=== PATIENT | male | born 1960 | race Caucasian/White ===

== ENCOUNTER → 2017-06-14 15:36 | Outpatient (POV) | payer OTHER, SELFPAY | PROVIDERS: Visit Provider Physician Assistant | DX: Z00.00 Encounter for general adult medical examination without abnormal findings (principal) ==

== ENCOUNTER → 2018-04-26 08:39 | Outpatient (CLI) | payer OTHER, SELFPAY ==
--- NOTE | 2018-04-26 08:47 | US_ITS ---
US liver HISTORY: Right upper quadrant pain with nausea and elevated liver enzymes ITS.REASON: ELEVATED LIVER FUNCTION TEST ORDERING PHYSICIAN: Roni Vargas MD PATIENT AGE: 58 years COMPARISON: None FINDINGS: PANCREAS:Unremarkable. No obvious mass or abnormal fluid collection. No ductal dilatation LIVER:No focal liver lesions demonstrated. Homogeneous echogenicity. No intrahepatic biliary ductal dilatation evident RIGHT KIDNEY:Unremarkable. Normal size and echogenicity. No hydronephrosis GALLBLADDER:Prior cholecystectomy. Common bile duct is normal at 2 mm. IMPRESSION: Prior cholecystectomy otherwise negative hepatic ultrasound
== END ==
PROVIDERS: PCP Family Medicine; Visit Provider Family Medicine
DX: R94.5 Abnormal results of liver function studies (principal)
CPT/HCPCS: 76705

== ENCOUNTER → 2018-05-09 09:38 | Outpatient (POV) | payer OTHER, SELFPAY ==
[2018-05-09 10:22] LABS: Basophils # 0.1 K/mm3 (0-0.2); Basophils % 0.9 % (0.1-2.0); Eosinophils # 0.1 K/mm3 (0.0-0.4); Eosinophils % 2.1 % (0.1-12.0); Hematocrit 45.7 % (42.0-52.0); Hemoglobin 14.8 g/dL (14.1-18.0); Lymphocytes # 1.8 K/mm3 (0.7-4.5); Lymphocytes % 29.6 % (10-50); Mean Corpuscular HGB Conc 32.5 g/dL (31.8-35.4); Mean Corpuscular Hemoglobin 28.3 pg (27.0-31.2); Mean Platelet Volume 7.6 fl (7.4-10.4); Monocytes # 0.4 K/mm3 (0.1-1.0); Monocytes % 6.4 % (1.7-9.3); Neutrophils # 3.6 K/mm3 (1.8-7.8); Neutrophils % 60.9 % (37.0-80.0); Platelet Count 224 K/mm3 (142-424); Red Blood Count 5.26 M/mm3 (4.60-6.20)
[2018-05-09 11:18] LABS: Alanine Aminotransferase 78 U/L (12-78); Albumin Level 3.7 gm/dL (3.4-5.0); Albumin/Globulin Ratio 1.1 (1.1-1.8); Alkaline Phosphatase 99 U/L (46-116); Amylase 48 U/L (25-115); Anion Gap 12.4 mEq/L (5-15); Aspartate Amino Transferase 21 U/L (15-37); Bilirubin,Total 0.6 mg/dL (0.2-1.0); Blood Urea Nitrogen 12 mg/dL (7-18); Calcium 8.6 mg/dL (8.5-10.1); Carbon Dioxide 29 mmol/L (21.0-32.0); Chloride 105 mmol/L (98-107); Creatinine,Serum 0.87 mg/dL (0.70-1.30); Estimated Glomerular Filt Rate 90 ml/min (>60); GFR (African American) 109 ML/MIN (>60); Globulin 3.3 gm/dl (1.3-3.2); Glucose 88 mg/dL (74-106); Lipase 181 u/L (73-393); Potassium 4.4 mmoL/L (3.5-5.1); Sodium 142 mmol/L (136-145)
== END ==
PROVIDERS: Visit Provider Nurse Practitioner Acute Care
DX: R10.11 Right upper quadrant pain (principal)
CPT/HCPCS: 36415; 80053; 82150; 83690; 85025

== ENCOUNTER → 2018-07-26 07:32 | Outpatient (CLI) | payer OTHER, SELFPAY ==
[2018-07-27 15:47] LABS: H. pylori Breath Test Negative (Negative)
== END ==
PROVIDERS: Visit Provider Nurse Practitioner Acute Care
DX: B96.81 Helicobacter pylori [H. pylori] as the cause of diseases classified elsewhere (principal); R10.11 Right upper quadrant pain; R74.8 Abnormal levels of other serum enzymes
CPT/HCPCS: 83013

== ENCOUNTER → 2018-11-17 13:55 | Outpatient (CLI) | payer OTHER, SELFPAY | PROVIDERS: PCP Family Medicine; Visit Provider Family Medicine | DX: R07.9 Chest pain, unspecified (principal); I10 Essential (primary) hypertension; E78.00 Pure hypercholesterolemia, unspecified | CPT/HCPCS: 93017 ==

== ENCOUNTER → 2018-11-18 14:46 | Outpatient (CLI) | payer OTHER, SELFPAY | PROVIDERS: PCP Family Medicine; Visit Provider Family Medicine | DX: G47.33 Obstructive sleep apnea (adult) (pediatric) (principal); R40.0 Somnolence; R06.83 Snoring; I10 Essential (primary) hypertension | CPT/HCPCS: 95806 ==

== ENCOUNTER → 2019-02-07 14:28 | Outpatient (POV) | payer OTHER, SELFPAY | PROVIDERS: Visit Provider Dermatology | DX: Z00.00 Encounter for general adult medical examination without abnormal findings (principal) ==

== ENCOUNTER → 2019-03-14 14:08 | Outpatient (POV) | payer OTHER, SELFPAY | PROVIDERS: Visit Provider Dermatology | DX: Z00.00 Encounter for general adult medical examination without abnormal findings (principal) ==

== ENCOUNTER → 2019-06-26 14:48 | Outpatient (CLI) | payer OTHER, SELFPAY ==
--- NOTE | 2019-06-26 14:52 | XR_ITS ---
PROCEDURE: XR ANKLE LT MIN 3V CLINICAL INDICATION: LT ANKLE PAIN, ACUTE Left ankle pain and swelling COMPARISON: No exams were available for comparison FINDINGS: Hyperostosis involves the tip of the medial malleolus. There is minimal spurring along the anterior distal tibia. The ankle mortise is well preserved and the talar dome has an unremarkable appearance. Small spurs present at the plantar surface of the calcaneus. No fracture or dislocation. IMPRESSION: Degenerative changes, no acute finding Dictated by: Yan Leyva MD 06/26/2019 16:17 Electronically signed by Yan Leyva MD in [place] 06/26/2019 16:17
== END ==
PROVIDERS: PCP Family Medicine; Visit Provider Nurse Practitioner Family
DX: M25.572 Pain in left ankle and joints of left foot (principal)
CPT/HCPCS: 73610

== ENCOUNTER → 2020-02-16 10:06 | Outpatient (CLI) | payer OTHER, SELFPAY ==
--- NOTE | 2020-02-16 10:14 | XR_ITS ---
PROCEDURE: XR CERVICAL SPINE 5V CLINICAL INDICATION: PARESTHESIA OF SKIN, ANETHESIA OF SKIN, NECK PAIN COMPARISON: No exams were available for comparison FINDINGS: There is normal curvature and alignment. C1 through C7 appear intact. There is no significant disc space narrowing. Oblique films show normal neural foramina left-side, the right neural foramina particularly lower cervical spine are not adequately evaluated due to improper positioning. I suspect that they are normal since there is no significant posterior osteophytic spurring at any level of the cervical spine. But I cannot be certain. The prevertebral soft tissues are normal and the odontoid is normal. IMPRESSION: Probably normal cervical spine, if there is right arm radiculopathy suggest repeat oblique position to better evaluate the right neural foramina. Dictated by: Dr. Grey Fabian MD 02/16/2020 11:08 Dr. Grey Fabian MD in [place] 02/16/2020 11:08
== END ==
PROVIDERS: PCP Family Medicine; Visit Provider Family Medicine
DX: R20.2 Paresthesia of skin (principal); R20.0 Anesthesia of skin; M54.2 Cervicalgia
CPT/HCPCS: 72050

== ENCOUNTER → 2020-03-04 15:58 | Outpatient (CLI) | payer OTHER, SELFPAY ==
[2020-03-04 18:00] LABS: Thyroid Stimulating Hormone 1.41 uIU/mL (0.465-4.68)
[2020-03-04 18:34] LABS: Vitamin B12 361 pg/mL (239-931)
[2020-03-04 18:45] LABS: Folate 9.79 ng/mL
== END ==
PROVIDERS: Visit Provider Specialist
DX: R20.0 Anesthesia of skin (principal); R20.2 Paresthesia of skin
CPT/HCPCS: 36415; 82607; 82746; 84443

== ENCOUNTER → 2020-04-11 10:19 | Outpatient (CLI) | payer OTHER, SELFPAY ==
--- NOTE | 2020-04-11 10:24 | XR_ITS ---
PROCEDURE: XR KUB CLINICAL INDICATION: FLANK PAIN, RENAL CALCULUS,RT COMPARISON: CT ABDPELW CT abdomen pelvis w con from 04/12/2018 FINDINGS: There are surgical clips in the right upper quadrant. There is a 5 mm stone in the mid upper pole of the right kidney. No ureteral calculi are evident. No acute bony findings. IMPRESSION: Right nephrolithiasis Dictated by: Yan Leyva MD 04/11/2020 17:29 Yan Leyva MD in [place] 04/11/2020 17:29
--- NOTE | 2020-04-11 10:34 | XR_ITS ---
PROCEDURE: XR WRIST RT MIN 3V CLINICAL INDICATION: CTS/ RT wrist pain COMPARISON: No exams were available for comparison FINDINGS: No fracture or dislocation. No lytic or blastic change. There is normal mineralization. The joint spaces are well-preserved. No significant degenerative/arthritic changes. No erosive changes evident. Other findings:There is minimal bony spurring at the radial styloid process and at the trapezium laterally. IMPRESSION: Minimal degenerative change, no acute finding Dictated by: Yan Leyva MD 04/11/2020 17:27 Yan Leyva MD in [place] 04/11/2020 17:27
--- NOTE | 2020-04-11 10:34 | XR_ITS ---
PROCEDURE: XR WRIST LT MIN 3V CLINICAL INDICATION: CTS/ left wrist pain COMPARISON: No exams were available for comparison FINDINGS: No fracture or dislocation. No lytic or blastic change. There is normal mineralization. The joint spaces are well-preserved. No significant degenerative/arthritic changes. No erosive changes evident. Other findings:None. IMPRESSION: No acute findings. Dictated by: Yan Leyva MD 04/11/2020 17:26 Yan Leyva MD in [place] 04/11/2020 17:26
== END ==
PROVIDERS: PCP Family Medicine; Visit Provider Nurse Practitioner Family
DX: G56.03 Carpal tunnel syndrome, bilateral upper limbs (principal)
CPT/HCPCS: 73110; 74018

== ENCOUNTER → 2020-05-01 16:38 | Outpatient (CLI) | payer OTHER, SELFPAY ==
--- NOTE | 2020-05-01 16:51 | XR_ITS ---
PROCEDURE: XR CHEST 2V CLINICAL HISTORY: preop; hypertension COMPARISON: No exams were available for comparison FINDINGS: The cardiomediastinal silhouette and pulmonary vascularity are within normal limits. The lungs are clear without infiltrates, suspicious nodules, or pleural effusions. There is evidence of old granulomatous disease with calcified node in the right hilum. No acute bony abnormalities. IMPRESSION: No acute findings. Dictated by: Yan Leyva MD 05/01/2020 17:49 Yan Leyva MD in [place] 05/01/2020 17:49
[2020-05-01 19:03] LABS: Basophils # 0.1 K/mm3 (0-0.2); Basophils % 0.8 % (0.1-2.0); Eosinophils # 0.1 K/mm3 (0.0-0.4); Eosinophils % 1.6 % (0.1-12.0); Hematocrit 47.2 % (42.0-52.0); Hemoglobin 15.2 g/dL (14.1-18.0); Lymphocytes # 1.7 K/mm3 (0.7-4.5); Lymphocytes % 25.8 % (10-50); Mean Corpuscular HGB Conc 32.2 g/dL (31.8-35.4); Mean Corpuscular Hemoglobin 28.6 pg (27.0-31.2); Mean Corpuscular Volume 88.8 fl (80-94); Mean Platelet Volume 8.4 fl (7.4-10.4); Monocytes # 0.5 K/mm3 (0.1-1.0); Monocytes % 7.1 % (1.7-9.3); Neutrophils # 4.3 K/mm3 (1.8-7.8); Neutrophils % 64.7 % (37.0-80.0); Platelet Count 230 K/mm3 (142-424); Red Blood Count 5.32 M/mm3 (4.60-6.20); White Blood Count 6.6 K/mm3 (4.8-10.8)
[2020-05-01 19:18] LABS: Chloride 104 mmol/L (98-107); Potassium 4.4 mmoL/L (3.5-5.1); Sodium 140 mmol/L (136-145)
[2020-05-01 19:21] LABS: Alanine Aminotransferase 28 U/L (12-78); Albumin Level 4.5 g/dl (3.5-5.0); Albumin/Globulin Ratio 1.6 (1.1-1.8); Alkaline Phosphatase 75 U/L (38-126); Anion Gap 10.4 mEq/L (5-15); Aspartate Amino Transferase 29 U/L (17-59); Bilirubin,Total 0.5 mg/dl (0.2-1.3); Blood Urea Nitrogen 15 mg/dl (9-20); Calcium 9.1 mg/dl (8.4-10.2); Carbon Dioxide 30 mmol/L (22.0-30.0); Estimated Glomerular Filt Rate 86 ml/min (>60); GFR (African American) 104 ML/MIN (>60); Globulin 2.8 g/dL (1.3-3.2); Glucose 101 mg/dl (74-100); Total Protein,Serum 7.3 g/dl (6.3-8.2)
[2020-05-01 19:42] LABS: Coronavirus 19 IgG Antibody Positive (Negative); Coronavirus 19 IgM Antibody Negative (Negative)
== END ==
PROVIDERS: PCP Family Medicine; Visit Provider Orthopaedic Surgery
DX: Z01.818 Encounter for other preprocedural examination (principal); G56.02 Carpal tunnel syndrome, left upper limb
CPT/HCPCS: 36415; 71046; 80053; 85025; 86328

== ENCOUNTER 2020-05-02 09:24 | Day surgery (SDC) | payer OTHER, SELFPAY ==
[2020-05-02 09:42] VITALS: BP 151/79; PULSE 58; RESP 16; TEMP 36.2; O2SAT 96; BMI 36.0
--- NOTE | 2020-05-02 10:38 | HMH.ANESCL ---
[facility] Anesthesia Checklist - Patient Identification Patient Identification: Arm Band, Verbal (Name & ) - Structural Data Admitted From: Home Planned Operative Procedure/s: Left CTR Consent for Planned Operative Procedure(s) Verified: Yes Verified Documents: Surgical Consent, History and Physical - NPO Status Verified Time NPO: 19:00 - Chart Verification Results Verified: CBC, BMP, UA - Additional verifications Anesthesia Reactions: No Hx Blood Transfusions: No Blood Transfusion Reaction: No - Airway Assessment C-Spine Mobility Assessed: Yes (MP 2, TMD 3, thick neck) TMJ Mobility Assessed: Yes Dentition: Good Dentition - Neurological Assessment Level of Consciousness: Awake, Alert, Appropriate, Follows Commands Hx Seizures: No Numbness or tingling in extremities: No - Anesthesia Plan Anesthesia Risk discussed: Yes ASA Class: III Anesthesia Type: MAC w/Block (Left supraclaviculer nerve block) [facility] History I have reviewed the patient's past medical history: Yes Medical History: Reports:: Hypertension, Kidney Stones Denies:: Cancer, Diabetes Mellitus Type 1, Diabetes Mellitus Type 2, Internal Pacemaker, Lung Disease, MRSA, Seizures *Have you ever received a pneumonia vaccine?: No *Have you received a flu vaccine this season?: Yes Other Medical History: Denies: Blood Transfusion Reaction Comment:: Obesity, ASTRID no CPAP Anesthesia experience/problems:: None Other Surgeries: Yes: Cholecystectomy, Other (Lumbar Discectomy). No: Pacemaker Amputation: No Fractures: No - *Social History Last grade of school completed: High school graduate Smoking Status: Never smoker Alcohol Intake: never Substance Use Type: denies use *Occupational Status:: employed Housing: house Household Members: spouse *Travel in the last 8 weeks: None Family Hx:: Diabetes, Cancer, Hyperlipidemia, Hypertension
[2020-05-02 13:00] VITALS: BP 145/97; PULSE 60; RESP 18; TEMP 36.8; O2SAT 97
[2020-05-02 13:15] VITALS: BP 138/80; PULSE 58; RESP 18; TEMP 36.8; O2SAT 93
[2020-05-02 13:30] VITALS: BP 142/84; PULSE 55; RESP 18; TEMP 36.8; O2SAT 92
[2020-05-02 13:45] VITALS: BP 129/77; PULSE 54; RESP 18; TEMP 36.8; O2SAT 92
--- NOTE | 2020-05-02 13:45 | HMH.OPNOTE ---
Date of procedure: 05/02/20 Pre-op Diagnosis:: Carpal tunnel syndrome, left wrist Post-op Diagnosis:: Same Procedure performed:: Open carpal tunnel release, left wrist Surgeon:: Michael Sanz MD Plate Corrector(s):: Tanisha Lamb SUPERVISOR VACUUM METALIZING:: Giovani Valdes Anesthesia: regional (Supraclavicular nerve block) Estimated blood loss (mL): 2 Clinical Note:: Patient is 60-year-old [id number] male with bilateral carpal tunnel syndrome with disabling symptoms. EMG/NCV studies confirmed carpal tunnel syndrome on both sides and his left side is more symptomatic than the right. Patient is having significant and disabling symptoms on the left side and has failed to respond adequately to conservative management. Therefore, the carpal tunnel release surgery is necessary to relieve symptoms, preserve the remaining fibers of the median nerve, improve function and decrease the pain, paresthesias and weakness and to prevent permanent nerve damage. Please refer to my office note for full details. Operative findings:: The intraoperative findings showed the median nerve to be very tightly compressed and hyperemic. The flexor retinaculum was noted to be thick and tight. There was mild synovitis in the carpal tunnel. There was no evidence of any space-occupying lesions within the carpal tunnel. Operative note:: On the day of the surgery the patient was met in the preoperative area. Patient was positively identified and the operative site was marked and initialed by me. A physical examination was performed and the chart was updated. I again discussed the procedure, risks and benefits and alternatives with the patient. The complications discussed include but are not limited to- bleeding, injury to nerves, blood vessels and tendons, infection, wound dehiscence, incomplete relief/continued pain, persistent numbness, palmar hypersensitivity, pillar pain, DVT/PE, complex regional pain syndrome(CRPS), worsening of nerve damage, failure of the condition to improve, incomplete return of function, bowstringing of tendons, weakness of rendering equipment tender strength, recurrence, failure of the surgery to accomplish the desired goals, decreased use of the hand, loss of use of the arm, loss of the hand or arm, loss of life. Likely need for further surgery in the future has been discussed. I've indicated to the patient where the proposed incision would be made and also discussed the possibility of extending the incision if needed to accomplish an effective release. We have discussed how the goal of surgery is to protect the fibers which have remained healthy and hopefully reverse the symptoms of the fibers which are compromised but still recoverable. We have explained that, fibers that are permanently damaged will not recover. Patient asked appropriate questions and all have been answered by me. Patient wished to proceed with the surgery. Patient understood the risks, agreed to proceed with surgery, and no guarantees or assurances were given or implied. The patient was brought to the operating room and placed supine on the operating table. The left upper extremity was placed over a side table. All the bony prominences were well-padded. The patient had a supraclavicular nerve block and IV sedation administered by the electric lineman. The left upper extremity was prepped and draped in the usual sterile fashion. A preprocedure timeout was performed as per hospital policy. The skin incision was marked using the English's landmarks, just ulnar to the thenar crease. The limb was exsanguinated with the Esmarch bandage and tourniquet was inflated to 250 mmHg. Please see nursing records for the total tourniquet time. English's landmarks were utilized and a skin incision was made parallel and just ulnar to the thenar crease with a 15 blade. Blunt tissue dissection was carried through the subcutaneous tissue down to the palmar fascia. The palmar fascia was incised with the knife to reveal the transverse carpal ligament. The transve
[2020-05-02 14:09] VITALS: BP 127/75; PULSE 52; RESP 18; TEMP 36.8; O2SAT 92
== END 2020-05-02 14:10 | disposition home or self-care (01) ==
LOC: OR 09:26
PROVIDERS: PCP Family Medicine; Visit Provider Orthopaedic Surgery
PROC: (CPT 64721; principal; 2020-05-02 11:00)
DX: G56.02 Carpal tunnel syndrome, left upper limb (principal)
CPT/HCPCS: 64721; 96374; J0670

== ENCOUNTER → 2021-02-12 15:13 | Outpatient (CLI) | payer OTHER, SELFPAY ==
--- NOTE | 2021-02-12 15:28 | XR_ITS ---
PROCEDURE: XR CHEST 2V CLINICAL HISTORY: surgery 02/20/21; hypertension COMPARISON: CR XR CHEST 2V from 05/01/2020 FINDINGS: The cardiomediastinal silhouette and pulmonary vascularity are within normal limits. Calcified node is present in the precarinal region on the right. Lungs are clear bilaterally. No acute bony abnormalities. IMPRESSION: No acute findings. Dictated by: Yan Leyva MD 02/12/2021 16:32 Yan Leyva MD in [place] 02/12/2021 16:32
[2021-02-12 15:51] LABS: Basophils # 0.1 K/mm3 (0-0.2); Basophils % 0.8 % (0.1-2.0); Eosinophils # 0.1 K/mm3 (0.0-0.4); Eosinophils % 1.8 % (0.1-12.0); Hematocrit 46.5 % (42.0-52.0); Hemoglobin 15.3 g/dL (14.1-18.0); Lymphocytes # 1.9 K/mm3 (0.7-4.5); Lymphocytes % 26.8 % (10-50); Mean Corpuscular HGB Conc 32.9 g/dL (31.8-35.4); Mean Corpuscular Hemoglobin 29.8 pg (27.0-31.2); Mean Corpuscular Volume 90.6 fl (80-94); Mean Platelet Volume 7.8 fl (7.4-10.4); Monocytes # 0.4 K/mm3 (0.1-1.0); Monocytes % 6.1 % (1.7-9.3); Neutrophils # 4.6 K/mm3 (1.8-7.8); Neutrophils % 64.5 % (37.0-80.0); Platelet Count 231 K/mm3 (142-424); Red Blood Count 5.13 M/mm3 (4.60-6.20); Red Cell Distribution Width 12.8 % (11.5-17.5); White Blood Count 7.1 K/mm3 (4.8-10.8)
[2021-02-12 17:38] LABS: Alanine Aminotransferase 38 U/L (12-78); Albumin Level 4.3 g/dl (3.5-5.0); Albumin/Globulin Ratio 1.6 (1.1-1.8); Alkaline Phosphatase 68 U/L (38-126); Anion Gap 14.2 mEq/L (5-15); Aspartate Amino Transferase 36 U/L (17-59); Bilirubin,Total 0.5 mg/dl (0.2-1.3); Blood Urea Nitrogen 16 mg/dl (9-20); Calcium 9.2 mg/dl (8.4-10.2); Carbon Dioxide 30 mmol/L (22.0-30.0); Chloride 101 mmol/L (98-107); Estimated Glomerular Filt Rate 76 ml/min (>60); GFR (African American) 92 ML/MIN (>60); Globulin 2.7 g/dL (1.3-3.2); Glucose 102 mg/dl (74-100); Potassium 5.2 mmoL/L (3.5-5.1); Sodium 140 mmol/L (136-145)
== END ==
PROVIDERS: Visit Provider Orthopaedic Surgery
DX: Z01.818 Encounter for other preprocedural examination (principal); G56.01 Carpal tunnel syndrome, right upper limb
CPT/HCPCS: 36415; 71046; 80053; 85025

== ENCOUNTER → 2021-02-18 14:14 | Outpatient (CLI) | payer OTHER, SELFPAY | PROVIDERS: Visit Provider Orthopaedic Surgery | DX: Z01.818 Encounter for other preprocedural examination (principal); Z11.52 Encounter for screening for COVID-19; G56.01 Carpal tunnel syndrome, right upper limb | CPT/HCPCS: C9803; U0003; U0005 ==

== ENCOUNTER 2021-02-20 06:58 | Day surgery (SDC) | payer OTHER, SELFPAY ==
[2021-02-18 12:53] VITALS: BMI 36.0
[2021-02-20] VITALS (8 sets, daily range): BP systolic 120–151; BP diastolic 61–91; PULSE 62–78; RESP 13–18; TEMP 36.2–36.8; O2SAT 90–98
--- NOTE | 2021-02-20 08:30 | HMH.ANESCL ---
[facility] Anesthesia Checklist - Patient Identification Patient Identification: Arm Band - Structural Data Admitted From: Home Planned Operative Procedure/s: Carpal tunnel release Consent for Planned Operative Procedure(s) Verified: Yes - NPO Status Verified Time NPO: 00:00 - Additional verifications Anesthesia Reactions: No Hx Blood Transfusions: No Blood Transfusion Reaction: No - Airway Assessment C-Spine Mobility Assessed: Yes TMJ Mobility Assessed: Yes Dentition: Good Dentition - Neurological Assessment Level of Consciousness: Awake Hx Seizures: No Numbness or tingling in extremities: Yes - Anesthesia Plan Anesthesia Risk discussed: Yes Anesthesia Plan: Verified ASA Class: II Anesthesia Type: General [facility] History I have reviewed the patient's past medical history: Yes Medical History: Reports:: Hyperlipidemia, Hypertension, Kidney Stones Denies:: Cancer, Diabetes Mellitus Type 1, Diabetes Mellitus Type 2, Internal Pacemaker, Lung Disease, MRSA, Seizures *Have you ever received a pneumonia vaccine?: Yes *Have you received a flu vaccine this season?: No Other Medical History: Denies: Blood Transfusion Reaction Anesthesia experience/problems:: None Laterality Cases: Left: Carpal Tunnel Release Other Surgeries: Yes: No Previous Surgery, Cholecystectomy, Other. No: Pacemaker Amputation: No Fractures: No - *Social History Last grade of school completed: 11th or 12th Smoking Status: Never smoker Alcohol Intake: never Substance Use Type: denies use *Occupational Status:: employed Housing: house Household Members: spouse *Travel in the last 8 weeks: None Family Hx:: Diabetes, Cancer, Hyperlipidemia, Hypertension
--- NOTE | 2021-02-20 10:35 | P.PN_ITS ---
[facility] Anesthesia Record Part I Intake, IV Amount: 400 Estimated blood loss (mL): 0 Urine output (mL): 0 Blood Pressure: 120/61 SaO2: 93 Pulse Rate: 76 Respiratory Rate: 13 Temperature: 97.3 F Patient is:: Drowsy, Oral/Nasal airway Stable to PACU at:: 10:33
--- NOTE | 2021-02-20 10:58 | HMH.OPNOTE ---
Date of procedure: 02/20/21 Pre-op Diagnosis:: Carpal tunnel syndrome, right Post-op Diagnosis:: Same Procedure performed:: Open carpal syndrome, right wrist Surgeon:: Michael Sanz MD Bulb Planter(s):: Monique Chino PA-C PROCESS CONTROL MANAGER:: Jeniffer Dougherty Anesthesia: LMA Estimated blood loss (mL): 2 Clinical Note:: Patient is a 61-year-old male with right carpal tunnel syndrome with long-standing symptoms. The clinical findings are consistent with the diagnosis of carpal tunnel syndrome. Previously EMG/NCV studies confirmed carpal tunnel syndrome on both sides and he previously underwent successful carpal tunnel release on the left side. Patient is having significant and disabling symptoms and has failed to respond adequately to conservative management. Therefore, carpal tunnel release surgery is necessary to relieve symptoms, preserve the remaining fibers of the median nerve, improve function and decrease the pain, paresthesias and weakness and to prevent permanent nerve damage. Please refer to my office note for full details. Operative findings:: The intraoperative findings showed the median nerve to be tightly compressed and hyperemic. The flexor retinaculum was noted to be thick and tight. There was mild synovitis in the carpal tunnel. There was no evidence of any space-occupying lesions within the carpal tunnel. Operative note:: On the day of the surgery the patient was met in the preoperative area. Patient was positively identified and the operative site was marked and initialed by me. A physical examination was performed and the chart was updated. I have again discussed the procedure, risks, benefits and alternatives with the patient. The complications discussed include but are not limited to- bleeding, injury to nerves, blood vessels and tendons, infection, wound dehiscence, incomplete relief/continued pain, persistent numbness, palmar hypersensitivity, pillar pain, DVT/PE, complex regional pain syndrome(CRPS), worsening of nerve damage, failure of the condition to improve, incomplete return of function, bowstringing of tendons, weakness of turret lathe tender strength, recurrence, failure of the surgery to accomplish the desired goals, decreased use of the hand, loss of use of the arm, loss of the hand or arm, loss of life. Likely need for further surgery in the future has been discussed. I've indicated to the patient where the proposed incision would be made and also discussed the possibility of extending the incision if needed to accomplish an effective release. We have discussed how the goal of surgery is to protect the fibers which have remained healthy and hopefully reverse the symptoms of the fibers which are compromised but still recoverable. We have explained that, fibers that are permanently damaged will not recover. Patient asked appropriate questions and all have been answered by me. Patient wished to proceed with the surgery. Patient understood the risks, agreed to proceed with surgery and no guarantees or assurances were given or implied. The patient was brought to the operating room and placed supine on the operating table. The right upper extremity was placed over a side table. All the bony prominences were well-padded. The patient had a general anesthesia administered by the clinical care leader. A well-padded tourniquet cuff was placed over the upper arm. The right upper extremity was prepped and draped in the usual sterile fashion. A preprocedure timeout was performed as per hospital policy. Administration of prophylactic antibiotics was confirmed with the clinical care leader. The skin incision was marked using the English's landmarks, just ulnar to the thenar crease. The limb was exsanguinated with the Esmarch bandage and tourniquet was inflated to 250 mmHg. Please see nursing records for the total tourniquet time. English's landmarks were utilized and a skin incision was made parallel and just ulnar to the thenar crease with a 15 blade. Blunt tissue dissection was carried
--- NOTE | 2021-02-20 11:09 | PC.NURSE ---
1057-detailed report called to TORREY Nation 1103-pt transported to post op via stretcher w/shaina rails up and left in care of TORREY Nation with bed locked in lowest position, vss, pt stable
--- NOTE | 2021-02-23 17:38 | P.PN_ITS ---
[facility] Anesthesia Record Part II Discharge Time: 11:03 Destination: Surgical Day Care (OP Surgery) PACU nurse assessment reviewed?: Yes Patient Condition:: Good Anesthesia Complications:: None Swallowing reflex intact?: Yes Cyanosis?: No Blood Pressure: 132/68 Pulse Rate: 75 Temperature: 97.2 F Mental Status: Alert & Oriented Pain level:: 0 Nausea and/or vomitting:: None Intake, IV Amount: 0
[2021-02-23 17:39] VITALS: BP 132/68; PULSE 75; TEMP 36.2
== END 2021-02-20 11:35 | disposition home or self-care (01) ==
LOC: OR 07:00
PROVIDERS: PCP Family Medicine; Visit Provider Orthopaedic Surgery
PROC: (CPT 64721; principal; 2021-02-20 08:45)
DX: G56.01 Carpal tunnel syndrome, right upper limb (principal)
CPT/HCPCS: 64721; 96374

== ENCOUNTER → 2021-03-06 16:24 | Outpatient (CLI) | payer OTHER, SELFPAY ==
--- NOTE | 2021-03-06 16:52 | XR_ITS ---
PROCEDURE INFORMATION: Exam: XR Abdomen Exam date and time: 03/06/2021 4:52 PM Age: 61 years old Clinical indication: Abdominal pain; Patient HX: Left flank pain, history of kidney stones per patient. ; Additional info: Lt flank pain TECHNIQUE: Imaging protocol: XR of the abdomen. Views: Frontal supine view of the abdomen. 1 View. COMPARISON: CR XR KUB 04/11/2020 10:30 AM FINDINGS: Gastrointestinal tract: Non-obstructive bowel gas pattern. Intraperitoneal space: Right upper quadrant cholecystostomy clips noted. Organs: No radiopaque stones identified along the course of the renal collecting systems. Vasculature: Phleboliths noted in the pelvis. Bones/joints: No acute osseous abnormality. IMPRESSION: No acute findings. No renal or ureteral stones identified.
[2021-03-06 17:13] LABS: Basophils # 0.1 K/mm3 (0-0.2); Basophils % 0.6 % (0.1-2.0); Eosinophils # 0.1 K/mm3 (0.0-0.4); Eosinophils % 1.4 % (0.1-12.0); Hematocrit 48.7 % (42.0-52.0); Hemoglobin 15.8 g/dL (14.1-18.0); Lymphocytes # 1.8 K/mm3 (0.7-4.5); Lymphocytes % 23.2 % (10-50); Mean Corpuscular HGB Conc 32.5 g/dL (31.8-35.4); Mean Corpuscular Hemoglobin 29.7 pg (27.0-31.2); Mean Corpuscular Volume 91.2 fl (80-94); Mean Platelet Volume 8.7 fl (7.4-10.4); Monocytes # 0.5 K/mm3 (0.1-1.0); Monocytes % 5.8 % (1.7-9.3); Neutrophils # 5.3 K/mm3 (1.8-7.8); Platelet Count 268 K/mm3 (142-424); Red Blood Count 5.34 M/mm3 (4.60-6.20); Red Cell Distribution Width 13.8 % (11.5-17.5); White Blood Count 7.7 K/mm3 (4.8-10.8)
[2021-03-06 18:02] LABS: Chloride 104 mmol/L (98-107); Sodium 140 mmol/L (136-145)
[2021-03-06 18:03] LABS: Potassium 4.8 mmoL/L (3.5-5.1)
[2021-03-06 18:05] LABS: Alanine Aminotransferase 32 U/L (12-78); Albumin Level 4.3 g/dl (3.5-5.0); Albumin/Globulin Ratio 1.6 (1.1-1.8); Alkaline Phosphatase 68 U/L (38-126); Anion Gap 11.8 mEq/L (5-15); Aspartate Amino Transferase 31 U/L (17-59); Bilirubin,Total 0.7 mg/dl (0.2-1.3); Blood Urea Nitrogen 18 mg/dl (9-20); Carbon Dioxide 29 mmol/L (22.0-30.0); Estimated Glomerular Filt Rate 98 ml/min (>60); GFR (African American) 119 ML/MIN (>60); Globulin 2.7 g/dL (1.3-3.2)
[2021-03-06 18:06] LABS: Glucose 97 mg/dl (74-100)
== END ==
PROVIDERS: Visit Provider Nurse Practitioner Family
DX: R10.9 Unspecified abdominal pain (principal)
CPT/HCPCS: 36415; 74018; 80053; 85025

== ENCOUNTER 2021-10-07 09:03 | Emergency (ER) | payer OTHER, SELFPAY ==
[2021-10-07 09:47] VITALS: BP 142/91; PULSE 64; RESP 19; TEMP 36.6; O2SAT 98; BMI 36.0
--- NOTE | 2021-10-07 10:16 | HMH.EDUTC ---
[facility] [place] Clinical Impression: Sinusitis Qualifiers: Sinusitis location: unspecified location Chronicity: acute Recurrence: non-recurrent Qualified Code(s): J01.90 - Acute sinusitis, unspecified Disposition: Home, Self-Care Condition on Discharge: Good Instructions: DI for Sinusitis Additional Instructions: Drink plenty of fluids. Take tylenol or ibuprofen for pain or fever. Take the medications as directed. Follow up with your regular doctor. GO TO THE ER FOR ANY WORSENING SYMPTOMS Don't start the oral steroids until tomorrow, since you had the shot here today. Prescriptions: Benzonatate [Benzonatate 100mg cap] 100 mg PO TIDP PRN #30 cap PRN Reason: Cough Transmission Status: Received by [facility] methylPREDNISolone [Medrol] 4 mg PO DIRECTED 6 Days #21 packet Transmission Status: Received by [facility] Azithromycin [Z-Dequan 250mg Tab*] 250 mg PO UD DOSE PK #6 tab Transmission Status: Received by [facility] Referrals: Goldy Ramos MD [Primary Care Provider] - Time of Disposition: 10:30 Medical Decision Making - Medical Records Medical records reviewed: No: I reviewed the patient's medical records. - David Inquiry Pt receiving controlled substance: No Vital Signs: 10/07/21 09:47 10/07/21 10:52 Temperature 97.9 F 97.9 F Temperature Source Oral Oral Pulse Rate 64 Pulse Rate [Radial] 64 Respiratory Rate 19 19 Blood Pressure 142/91 H Blood Pressure [Right Arm] 142/91 H Blood Pressure Mean [Right Arm] 108 02 Sat by Pulse Oximetry 98 - Lab Data Lab Results 10/07/21 09:42: Group A Strep Rapid Negative 10/07/21 09:46: Influenza Type A Ag Negative, Influenza Type B Ag Negative Orders (Tests/Meds): ED MEDICATIONS Discontinued Medications Generic Name Dose Route Start Last Admin Trade Name Freq PRN Reason Stop Dose Admin Ceftriaxone Sodium 1 gm 10/07/21 10:22 10/07/21 10:38 Ceftriaxone 1gm Vial IM 10/07/21 10:23 1 gm ONCE ONE Administration Lidocaine HCl 0 ml 10/07/21 10:22 10/07/21 10:38 Lidocaine 1% 5ml Pf Vial IM 10/07/21 10:23 2 ml ONCE ONE Administration Methylprednisolone Sodium Succinate 125 mg 10/07/21 10:22 10/07/21 10:38 Methylprednisolone Sod Succ 125mg Vial IM 10/07/21 10:23 125 mg ONCE ONE Administration ORDERS Category Date Time Status Strep Screen Confirmation Stat Micro 10/07/21 09:42 Received [facility] HPI - General Stated complaint: bodyaches, congestion, soa Time Seen by Provider: 10/07/21 10:16 Mode of Arrival: Ambulatory Source of Information: Patient Limitations: No Limitations Description of Symptoms (Recalled from Triage Doc. by RN): pt c/o sore throat, body aches, ear ache for 2 days HEENT Symptoms (Recalled from RN notes): Yes Resp Symptoms (Recalled from RN notes): Yes Skin Symptoms (Recalled from RN notes): No MS Symptoms (Recalled from RN notes): No Functional Status (Recalled from RN notes): wnl - History of Present Illness Provider Complaint: He states that for the past 2 days he has had sinus congestion, chest congestion, a low grade fever and he has felt bad. He believes he has a sinus infection. - Related Data Home Medications Medication Instructions Recorded Confirmed Losartan Potassium 100 mg PO DAILY 04/12/18 03/05/21 Previous Rx's Medication Instructions Recorded Azithromycin [Z-Dequan 250mg Tab*] 250 mg PO UD DOSE PK #6 tab 10/07/21 Benzonatate [Benzonatate 100mg 100 mg PO TIDP PRN #30 cap 10/07/21 cap] methylPREDNISolone [Medrol] 4 mg PO DIRECTED 6 Days #21 10/07/21 packet Allergies Allergy/AdvReac Type Severity Reaction Status Date / Time No Known Allergies Allergy Verified 10/07/21 09:50 - Worker's Comp Is this a Worker's Comp case?: No [facility] History - Hepatitis A Screen Attestation statement:: This patient has been screened for Hepatitis A risk factors. I have reviewed the patient's past me
[2021-10-07 10:20] LABS: UTC Influenza A Antigen Negative (Negative)
[2021-10-07 10:21] LABS: UTC Influenza B Antigen Negative (Negative)
[2021-10-07 10:23] LABS: Strep Scrn Group A (Rapid) Negative (Negative)
[2021-10-07 10:52] VITALS: BP 142/91; PULSE 64; RESP 19; TEMP 36.6
== END 2021-10-07 10:53 | disposition home or self-care (01) ==
PROVIDERS: Emergency Provider Nurse Practitioner Family; PCP Family Medicine
DX: J01.90 Acute sinusitis, unspecified (principal); J02.9 Acute pharyngitis, unspecified; H92.09 Otalgia, unspecified ear; R06.02 Shortness of breath; I10 Essential (primary) hypertension; E78.5 Hyperlipidemia, unspecified; N20.2 Calculus of kidney with calculus of ureter; M79.10 Myalgia, unspecified site; E66.9 Obesity, unspecified; Z79.52 Long term (current) use of systemic steroids; Z68.36 Body mass index [BMI] 36.0-36.9, adult; Z98.1 Arthrodesis status
CPT/HCPCS: 87430; 87804; 99213; G0463; J0696

== ENCOUNTER → 2022-10-08 08:42 | Outpatient (CLI) | payer OTHER, SELFPAY ==
--- NOTE | 2022-10-08 08:45 | CA_ITS ---
FINAL REPORT CLINICAL HISTORY: HTN FINDINGS: DOPPLER RENAL VESSELS Intrarenal resistive indices on the right are 0.49-0.64, normal . Intrarenal resistive indices on the left are 0.49-0.59, normal . Right main renal artery systolic velocity: 150 cm/sec. Aortic-right renal artery flow velocity ratio: 1.45 COMMENT: No evidence of hemodynamically significant renal artery stenosis . Left main renal artery systolic velocity: 167 cm/sec. Aortic-left renal artery flow velocity ratio: 1.63 COMMENT: No evidence of hemodynamically significant renal artery stenosis . CONCLUSION: No evidence of hemodynamically significant renal artery stenosis CTA or gadolinium-enhanced MR may be considered as a more sensitive exam. Alternatively noncontrast MRI may be considered for assessing main renal arteries for stenosis as a more sensitive exam if the patient has renal insufficiency. Reviewed, Interpreted and Dictated by Dayne Doe MD Transcribed by Debra Davis Authenticated and [facility]
--- NOTE | 2022-10-08 09:18 | US_ITS ---
FINAL REPORT CLINICAL HISTORY: R94.31 - Abnormal electrocardiogram ECG EKGhypertension FINDINGS: The right kidney measures 9.4 cm in length. It is normal in echogenicity. There is no hydronephrosis. The left kidney measures 11.9 cm in length. It is normal in echogenicity. There is no hydronephrosis. The spleen is unremarkable. Incidental note is made of fatty liver. IMPRESSION: Fatty liver. Reviewed, Interpreted and Dictated by Dayne Doe MD Transcribed by Analy Hamilton Authenticated and [facility]
== END ==
PROVIDERS: PCP Family Medicine; Visit Provider Nurse Practitioner
DX: I10 Essential (primary) hypertension (principal); R07.89 Other chest pain; R94.31 Abnormal electrocardiogram [ECG] [EKG]; G47.33 Obstructive sleep apnea (adult) (pediatric); Z82.49 Family history of ischemic heart disease and other diseases of the circulatory system
CPT/HCPCS: 76770; 93976

== ENCOUNTER → 2022-10-23 07:07 | Outpatient (CLI) | payer OTHER, SELFPAY ==
--- NOTE | 2022-10-23 07:07 | NM_ITS ---
APPROVED REPORT Exam: Nuclear Stress Test Indication: .fatigue..hypertension..chest pain Patient Location: Outpatient Stress Tech: Kita Witt [place] Tech:Tanisha Terrell JIMY RT(R)(N) Ht: 5 ft 7 in Wt: 238 lbs HR: 60 bpm BP: 183/97 mmHg BSA: 2.18 m2 TID: 1.09 BMI: 37.2 History: .fatigue..hypertension..chest pain Procedure: Patient received 0.4 mg of intravenous Lexiscan, resting heart rate 60 bpm, resting blood pressure 182/97 mmHg, with Lexiscan maximum heart rate achieved was 82 bpm which is 85 % of the maximum predicted heart rate and blood pressure was 190/94 mmHg. With Lexiscan, patient denied any complaint of chest pain. Cardiac Stress and Resting SPECT Images: Cardiac Stress and Resting SPECT images were obtained using technetium 99m Myoview 30.8 mCi stress and 10.56 mCi at rest. Resting and supine stress imaging demonstrate a fixed inferior perfusion defect that is no longer visualized with prone stress imaging. Findings are consistent with diaphragmatic attenuation. Gated imaging demonstrates mildly reduced global LV systolic function. LVEF is calculated at 48% Conclusion: Diaphragmatic attenuation is present. No definite reversible ischemia. Gated imaging demonstrates mildly reduced global LV systolic function. LVEF is calculated at 48% Electronically signed by : Beth Espinoza, 10/23/2022 18:48:25
--- NOTE | 2022-10-23 09:55 | CA_ITS ---
APPROVED REPORT Exam: Pharmacologic Technologist: Kita Nelson, Ht: 5 ft 7 in Wt: 241 lbs BSA: 2.19 m2 HR: 62 bpm BP: 183/97 mmHg Medical History Medications: Aspirin,,,,, Losartan,,,,, BisOPROLOL Fumarate,,,,, Stress Test Details Test: LEXISCAN Reason for pharmacologic stress test: physical limitation. HR Resting HR: 60 bpm Max Heart Rate (APMHR): 158 bpm Max HR Achieved: 82 bpm Target HR (85% APMHR): 134 bpm % of APMHR: 52 Recovery HR: 65 bpm BP Resting BP: 183.0/97.0 mmHg Max BP: 190.0/94.0 mmHg Recovery BP: 168.0/98.0 mmHg ECG Resting ECG: NSR, T-wave changes in inferior leads, delayed R/S transition in precordial leads ST Change: No change Clinical Exercise duration: 04:00 min Highest Stage Achieved: Exercise capacity: 1.0 METs Stress ECG Conclusion Symptoms: none Arrhythmias/Ectopy: none ST-T changes: No change Conclusion: Baseline ECG demonstrates normal sinus rhythm, T-wave changes in inferior leads, and delayed R/S transition in precordial leads. Following regadenoson administration, no ischemic ECG changes were noted. The patient had an abnormal BP resonse to exercise. switched from exercise myoview to Lexiscan. Test Summary REST . . . . . . . Resting REST 00:53 . . 60 . 183/ 97 . . Stage 1 01:00 . . 75 . . . . Stage 2 01:00 . . 75 . 190/ 94 . . Stage 3 01:00 . . 72 . . . . Stage 4 01:00 . . 65 . 172/ 91 . Stop exercise at 04:00 RECOVERY 01:00 . . 63 . 167/ 97 . . RECOVERY 02:00 . . 64 . 168/ 98 . . Electronically signed by : Beth Espinoza, 10/23/2022 18:41:15
== END ==
PROVIDERS: PCP Family Medicine; Visit Provider Nurse Practitioner
DX: R07.89 Other chest pain (principal); I10 Essential (primary) hypertension; R94.31 Abnormal electrocardiogram [ECG] [EKG]; G47.33 Obstructive sleep apnea (adult) (pediatric); Z82.49 Family history of ischemic heart disease and other diseases of the circulatory system
CPT/HCPCS: 78452; 93017; 93306; A9502; J2785

== ENCOUNTER → 2023-05-11 15:17 | Outpatient (POV) | payer OTHER, SELFPAY | PROVIDERS: PCP Family Medicine; Visit Provider Dermatology | DX: Z00.00 Encounter for general adult medical examination without abnormal findings (principal) ==

== ENCOUNTER 2023-08-10 09:24 | Day surgery (SDC) | payer BC, SELFPAY ==
[2023-08-09 12:12] VITALS: BMI 37.3
[2023-08-10] MEDS: PHENYLEPHRINE 2.5% OPHTH SOLN 2ML 0.0500000000000000028 ML OP ×3 (10:30→10:40)
[2023-08-10] MEDS: CYCLOPENTOLATE 2% OPHTH SOLN 2ML BOTTLE OP ×3 (10:30→10:40)
[2023-08-10] MEDS: TETRACAINE 0.5% OPTH SOL 15ML OP ×3 (10:30→10:40)
[2023-08-10 10:39] VITALS: BP 169/98; PULSE 64; RESP 18; TEMP 36.2; O2SAT 98
[2023-08-10 12:05] VITALS: BP 168/93; PULSE 57; RESP 18; O2SAT 97
[2023-08-10 12:10] VITALS: BP 157/96; PULSE 54; RESP 18; O2SAT 99
[2023-08-10] MEDS: MIDAZOLAM 2MG/2ML VIAL 1 MG IV (12:10)
[2023-08-10] MEDS: LIDOCAINE 1% PF 2ML AMPULE 2 ML IJ (12:11)
[2023-08-10] MEDS: TIMOLOL 0.5% OPTH SOLN 5ML OP (12:11)
[2023-08-10] MEDS: TOBRAMYCIN/DEX OPTH SUSP 2.5ML OP (12:11)
[2023-08-10] MEDS: SODIUM CHLORIDE 0.9% 10ML FLUSH SYRINGE 10 ML IV (12:12)
[2023-08-10 12:15] VITALS: BP 153/91; PULSE 53; RESP 18; O2SAT 100
[2023-08-10 12:20] VITALS: BP 153/88; PULSE 52; RESP 18; O2SAT 100
== END 2023-08-10 12:31 | disposition home or self-care (01) ==
PROVIDERS: PCP Family Medicine; Visit Provider Ophthalmology
PROC: (CPT 66984; principal; 2023-08-10 12:30)
DX: H25.811 Combined forms of age-related cataract, right eye (principal); H53.149 Visual discomfort, unspecified; H02.834 Dermatochalasis of left upper eyelid; H02.831 Dermatochalasis of right upper eyelid
CPT/HCPCS: 66984; V2632

== ENCOUNTER → 2023-12-07 08:17 | Day surgery (SDC) | payer BC, SELFPAY ==
[2023-11-30 10:05] VITALS: BMI 35.2
[2023-12-07 08:33] VITALS: BP 137/79; PULSE 66; RESP 18; TEMP 36.4; O2SAT 96
[2023-12-07 08:44] LABS: POC Glucose,Bedside 100 (70-110)
[2023-12-07] MEDS: LACTATED RINGERS 1000ML 1,000 ML 25 ML IV (08:47)
--- NOTE | 2023-12-07 08:48 | P.PNANES_ITS ---
[facility] Disclaimer: The information contained in this section may have been updated after the patient was seen, as this information can be updated by other users. 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 caffeine: Yes [facility] Anesthesia Checklist Patient Identification Patient Identification: Arm Band Structural Data Admitted From: Home Planned Operative Procedure/s: Colonoscopy Consent for Planned Operative Procedure(s) Verified: Yes Verified Documents: Surgical Consent and History and Physical NPO Status Verified Time NPO: 00:00 Additional verifications Anesthesia Reactions: No Hx Blood Transfusions: No Blood Transfusion Reaction: No Airway Assessment Mallampati Score:: Class II C-Spine Mobility Assessed: Yes TMJ Mobility Assessed: Yes Dentition: Good Dentition Neurological Assessment Level of Consciousness: Awake, Alert and Appropriate Anesthesia Plan Anesthesia Risk discussed: Yes Anesthesia Plan: Verified ASA Class: II Anesthesia Type: MAC
--- NOTE | 2023-12-07 08:55 | HMH.SCOPE ---
Procedure: Date: 12/07/23 Patient Date of :: 1960 Procedure Performed:: Colonoscopy with polypectomy Indications:: History of colon polyps Note: Colonoscopy performed by Dr. Wilkerson 2008 was notable for 3 scattered polyps, diverticulosis, and mild hemorrhoids. Performing Provider:: Crow Lowry MD Referring Provider:: . Sedation:: Monitored anesthesia care Procedure:: After informed consent was obtained the patient was taken to the endoscopy suite. Sedation ensued after the patient was transferred to the left lateral decubitus position. Pulse, blood pressure, and oxygen saturation were monitored throughout the procedure. Digital rectal exam revealed no significant abnormality. The colonoscope was placed in position. The entire colon was evaluated. The colonoscope was carefully removed and the patient was transferred to recovery in stable condition. Please see findings and specimens below for detail. Findings:: Bowel preparation moderate Mild hemorrhoidal cushions Hemorrhoidal tags with dominant senescent posterior tag Specimens:: Periappendiceal polyp (cold snare) Recommendations:: Timing of repeat colonoscopy is pending pathology but will likely be between 3-5 years secondary to history of polyps and moderate bowel preparation Complications:: No immediate Estimated blood obtained (mL): 1 Colonoscopy Component Colonoscopy Component Was a colonoscopy performed during today's procedure?: Yes Recommended follow up colonoscopy of at least 10 years?: No If no, follow up colonoscopy recommended in ___ years?: (See above) Reason for not recommending >/= 10 yr follow-up interval?: (See above)
[2023-12-07 09:05] VITALS: O2SAT 98
[2023-12-07 09:35] VITALS: BP 106/71; PULSE 59; RESP 16; TEMP 36.6; O2SAT 93
[2023-12-07 09:45] VITALS: BP 108/71; PULSE 58; RESP 16; TEMP 36.6; O2SAT 94
[2023-12-07 09:55] VITALS: BP 100/67; PULSE 62; RESP 16; TEMP 36.6; O2SAT 96
== END | disposition home or self-care (01) ==
PROVIDERS: PCP Internal Medicine Adolescent Medicine; Visit Provider Surgery
PROC: 0DJD8ZZ Inspection of Lower Intestinal Tract, Via Natural or Artificial Opening Endoscopic (ICD-10-PCS; CPT 45385; principal; 2023-12-07 09:30)
DX: Z12.11 Encounter for screening for malignant neoplasm of colon (principal); Z86.010 Personal history of colon polyps; K64.9 Unspecified hemorrhoids; K63.5 Polyp of colon
CPT/HCPCS: 45385; 82962; J2704; J7120

== ENCOUNTER 2024-07-20 10:38 | Outpatient (CLI) | payer BC, SELFPAY ==
--- NOTE | 2024-07-20 10:52 | US_ITS ---
FINAL REPORT TECHNIQUE: Ultrasound images of the kidneys were obtained. CLINICAL HISTORY: LEFT FLANK PAIN COMPARISON: 10/08/2022 FINDINGS: RENAL ULTRASOUND The right kidney measures 12.0 cm in length. It is normal echogenicity and thickness. There is no hydronephrosis, mass, or stone. The left kidney measures 12.2 cm in length. It is normal echogenicity and thickness. There is no hydronephrosis, mass, or stone. IMPRESSION: Morphologically normal kidneys. Reviewed, Interpreted and Dictated by Julianne Melo MD Transcribed by Shaniqua Tobar Authenticated and [facility]
== END 2024-07-20 23:59 | disposition home or self-care (01) ==
LOC: RAD 10:40
PROVIDERS: PCP Internal Medicine Adolescent Medicine; Visit Provider Internal Medicine Adolescent Medicine
DX: R10.9 Unspecified abdominal pain (principal)
CPT/HCPCS: 76770

== ENCOUNTER 2024-11-13 10:45 | Outpatient (POV) | payer BC, SELFPAY ==
--- OUTSIDE RECORDS SUMMARY | 2024-11-13 10:58 | XMS_ITS | Clinical Summary ---
Author Organization Healthcare Address [address] [place] [address] Care Team Providers Care Turnaround Engineer Name Role Phone Roni Vargas MD Primary Care Provider [phone] Allergies Active Allergy Reactions Criticality Noted Date Comments Other Unknown - Patient st ates they do not know rxn details Low 09/22/2016 Medications amLODIPine (Norvasc) 5 MG tablet 10/12/2023 Active atorvastatin (Lipitor) 40 MG tablet 09/02/2023 Active Farxiga 10 MG tablet 10/04/2023 Active losartan (Cozaar) 100 MG tablet 10/22/2023 Active metFORMIN XR (Glucophage-XR) 500 MG 24 hr tablet 09/02/2023 Active omeprazole (PriLOSEC) [address] capsule 10/12/2023 Active Ozempic, 0.25 or 0.5 MG/DOSE, 2 MG/3ML solution pen-injector INJECT 0.5MG UNDER THE SKIN ONCE WEEKLY 10/19/2023 Active Family History Medical History Relation Name Comments Conversions - Other Father Known he alth problems: none Breast cancer Mother Relation Name Status Comments Father Mother Social History Tobacco Use Types Packs/Day Years Used Date Smoking Tobacco: Never Smokeless Tobacco: Never Tobacco Cessation:Counseling Given: Not Answered Alcohol Use Standard Drinks/Week Comments No 0 (1 standard drink = 0.6 oz pur e alcohol) Sex and Gender Information Value Date Recorded Sex Assigned at Not on file Legal Sex Male 6:24 PM EDT Gender Identity Not on file Sexual Orientation Not on file Last Filed Vital Signs Vital Sign Reading Time Taken Comments Blood Pressure 142/83 11/04/2023 12:51 PM EDT Pulse 68 11/04/2023 12:51 PM EDT Temperature 36.2 C (97.2 F) 11/04/2023 12:51 PM EDT Respiratory Rate - - Oxygen Saturation 95% 11/04/2023 12:51 PM EDT Inhaled Oxygen Concentration - - Weight 104 kg (229 lb 3.2 oz) 11/04/2023 12:51 P M EDT Height 170.2 cm (5' 7 ) 11/04/2023 12:51 PM EDT Body Mass Index 35.9 11/04/2023 12:51 PM EDT Plan of Treatment Health Maintenance Due Date Last Done Comments Dental Oral Exam 1960 Dental Prophylaxis 1960 Dental X-Ray: Bitewings 1960 Dental X-Ray: Full Mouth 1960 [facility]-Depression Screening 1960 [facility]-HIV Screening 1960 [facility]-Hepatitis C Screening 1960 [facility]-/Child/Adol SDOH Screenings 1960 [facility]- SDOH Screenings 02/02/1978 [facility]-Adult SDOH Screenings 02/02/1978 [facility]-DTaP,Tdap,and Td Vaccine s (1 - Tdap) 02/02/1979 CT Colonography 02/02/2005 Colonoscopy 02/02/2005 FIT-DNA 02/02/2005 FIT 02/02/2005 FOBT 02/02/2005 Sigmoidoscopy 02/02/2005 [facility]-Colorectal Cancer Screening 02/02/2005 [facility]-Pneumococcal Vaccine: 50 + Years (1 of 1 - PCV) 02/02/2010 [facility]-Zoster Vaccines (1 of 2) 02/02/2010 [id number] Vaccine (3 - season) 2024 04/12/2021, 08/31/2020 [facility]-Influenza Vaccine (Seaso n Ended) 2025 03/26/2022, 03/25/2021 [facility]-RSV Vaccine: 60+ Years o r (1 - 1-dose 75+ series) 02/02/2035 [facility]-Obesity Intervention Completed 11/04/2023 HPV Vaccines Aged Out No longer eligi ble based on patient's age to complete this topic [facility]-HIB Vaccines Aged Out No longer e ligible based on patient's age to complete this topic [facility]-Hepatitis A Vaccines Aged Out No longer eligible based on patient's age to complete this topic [facility]-IPV Vaccines Aged Out No longer e ligible based on patient's age to complete this topic [facility]-Rotavirus Vaccines Aged Out No lo nger eligible based on patient's age to complete this topic Insurance OPAL Care Teams Turnaround Engineer Relationship Specialty Start Date End Date Roni Vargas MD [address] [place] [address] PCP - General 10/11/20
--- OUTSIDE RECORDS SUMMARY | 2024-11-13 10:58 | XMS_ITS | Encounter Summary ---
Author Organization Healthcare Address [address] [place] [address] Care Team Providers Care Learning Disabilities Resource Teacher Name Role Phone Roni Vargas MD Primary Care Provider Reason for Referral * Consultation (Routine) - Closed Specialty Diagnoses / Procedures Referred By Contac t Referred To Contact Dentist / Pain Medicine Diagnoses Obstructive sleep apnea (adult) (pediatric) Tessa Rowland MD [address] [place] [address] Phone: tel: fax: Quita Ospina, DDS [address] [place] [address] Phone: tel: fax: Referral ID Status Reason Start Date Expiration Date Visits Re quested Visits Authorized [id number] Closed 09/28/2023 03/29/2025 1 1 Encounter Details Date Type Department Care Team (Late st Contact Info) Description 09/28/2023 Community [facility] [address] [place] [address] Tessa Rowland MD [address] [facility] [address] [place] [address] Obstructive sleep apnea (adult) (pediatric) (Primary Dx) Social History Tobacco Use Types Packs/Day Years Used Date Smoking Tobacco: Never Alcohol Use Standard Drinks/Week Comments No 0 (1 standard drink = 0.6 oz pur e alcohol) Sex and Gender Information Value Date Recorded Sex Assigned at Not on file Legal Sex Male 6:24 PM EDT Gender Identity Not on file Sexual Orientation Not on file documented as of this encounter Plan of Treatment Scheduled Referrals Name Type Priority Associated Diagnoses Order Schedule Ambulatory Referral to Orofacial Pain Outpatient Referral Routine Obstructive sleep apnea (adult) (pediatric) Expected: 09/28/2023 (Approximate), Expires: 03/29/2025 documented as of this encounter Visit Diagnoses Diagnosis Obstructive sleep apnea (adult) (pediatric)- Primary documented in this encounter Care Teams Learning Disabilities Resource Teacher Relationship Specialty Start Date End Date Roni Vargas MD [address] [place] [id number] PCP - General 10/11/20 documented as of this encounter
--- NOTE | 2024-11-13 11:32 | XR_ITS ---
FINAL REPORT CLINICAL HISTORY: Low back pain, left-sided x1 year COMPARISON: None FINDINGS: LUMBAR SPINE 3 views of the lumbar spine were obtained. There is no prior exam for comparison. There is no acute fracture or malalignment. Moderate anterior osteophytes are present at the T12-L1 and L1-2 levels. Vertebral body height is preserved. There is moderate degenerative disc disease present, predominantly at the L5-S1 level, with associated facet sclerosis. No acute paraspinal abnormality. IMPRESSION: Degenerative change as described, without acute bony abnormality. Reviewed, Interpreted and Dictated by Maciel Keita MD Transcribed by Darcy Alarcon Authenticated and . [facility]
--- NOTE | 2024-11-13 11:38 | EXP.PAIN.OV ---
HPI Data of Consult Patient: new to practice Consult date: 11/13/24 Requesting Physician: Pricilla Oliver APRN Primary Care Provider: Roni Dennis MD Reason for consult: Low back pain, left-sided History of present illness: Mr. Zelaya is a 64 year old male who presents today as a new patient. He is a referral from Dr. Dennis's office. Today he rates his pain a 5 out of 10. Patient states he has been dealing with chronic low back pain along the left side for longer than a year. Patient denies any specific trauma or injury that initially started the symptoms. He states the only thing that comes to mind is that he did have a fall in the snow that may have aggravated it. He does describe it as a fairly constant achy sensation. He states that there are times that it is worse than others. He denies any radiating symptoms into his legs. Patient does use [id number] ibuprofen along with heat for temporary relief. Patient denies trying any previous topicals, physical therapy or chiropractor therapy. Patient does state that he had a discectomy of around the L3 level back about 25 to 30 years however denies any other surgeries. His David has been reviewed and is appropriate. He denies any updated imaging. Pain at rest (0-10 scale): 5 Has patient had previous pain injection?: No Conservative treatment options previously tried: Home exercise plan (Longer than 12 weeks) cc:: CC: Pricilla Oliver APRN [facility] Disclaimer: The information contained in this section may have been updated after the patient was seen, as this information can be updated by other users. Medical History Acid reflux Abnormal electrocardiogram [ECG] [EKG] Hypertension ASTRID (obstructive sleep apnea) ASTRID initially diagnosed following a home sleep study ordered by PCP, (Dr. Roni Vargas) 11/18/2018: [facility], AHI 22, RDI 29, lowest SpO2: 80%. Sleep efficiency: 78% time. 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 caffeine: Yes Review of Systems Review of Systems Review of systems:: pertinent systems reviewed and negative unless documented below Review of systems (narrative): Review of Systems: General: No recent weight changes, no fever, no sleep disturbances Respiratory: No cough, no shortness of air, no recurring pulmonary infections Cardiovascular/peripheral vascular: No chest pain, no palpitations, no edema, no shortness of breath Gastrointestinal: No new onset incontinence, normal bowel movements reported Genitourinary: No new onset incontinence Musculoskeletal: Left-sided low back pain Psychiatric: [Normal mood/affect] Neurological: [Denies weakness in extremities], [denies balance issues] Meds Home Medications and Allergies Home Medications ?Medication ?Instructions ?Recorded ?Confirmed ?Type losartan 100 mg tablet 100 mg PO DAILY Hypertension 04/12/18 07/06/24 History atorvastatin 40 mg tablet 40 mg PO DAILY 09/27/23 07/06/24 History semaglutide 0.25 mg or 0.5 mg (2 1 mg SQ WEEKLY 01/10/24 07/06/24 History mg/1.5 mL) subcutaneous pen injector ([employer]) omeprazole 40 mg capsule,delayed 40 mg PO DAILY #30 caps 01/24/24 07/06/24 Rx release hydrochlorothiazide 25 mg tablet 25 mg PO .COMPLEX #30 tabs 07/06/24 07/06/24 Rx amlodipine 5 mg tablet (Norvasc) 5 mg PO DAILY #30 tabs 08/25/24 Rx New Prescriptions to Start Prescriptions: Allergies Allergy/AdvReac Type Severity Reaction Status Date / Time No Known Allergies Allergy Verified 07/06/24 08:16 Objective Narrative: Physical Exam: General: Alert and oriented x3, no acute distress, pleasant and cooperative Lungs: Respirations even and unlabored, symmetrical chest expansion Eyes: PERRL Musculoskeletal: Flexion and extension of lumbar [spine] somewhat guarded secondary to pain Neurological: Speech clear, no gross sensory deficit Assessment and Plan *Assessment and plan (1) Low back pain: Status: Acute Category: Medical Code(s): M54.50 - Low back pain, unspecified Plan Patient is experiencing worsening pain in his upper lumbar spine along the left side. Patient did not have any point tenderness during today's visit. I will order the patient a compounded cream. I did also discuss with the patient regarding ordering x-ray and MRI without contrast to follow to see whether or not the possibility of arthritis or bones were's playing a role. Patient will return to clinic in 1 month following his imaging for reevaluation of symptoms and plan of care. Patient has been instructed to contact the clinic with any concerns before the next appointment. Dr. Loving has reviewed this note and agrees with this plan of care. This note was dictated using voice recognition software and make contain errors or omissions. All injections are used with Lidocaine, Bupivacaine and dexamethasone. Occasionally urine drug screen is needed to verify patient's compliance with our office pain contract. This is ordered based off specific treatments related to chronic pain with the potential to abuse certain medications.
[2024-11-13 12:50] VITALS: BP 139/79; PULSE 63; RESP 18; O2SAT 95; BMI 36.8
== END 2024-11-13 23:59 | disposition home or self-care (01) ==
PROVIDERS: PCP Internal Medicine Adolescent Medicine; Visit Provider Nurse Practitioner Family
DX: M54.50 Low back pain, unspecified (principal); Z98.890 Other specified postprocedural states
CPT/HCPCS: 72100; 99202; G0463

== ENCOUNTER 2024-12-27 11:00 | Outpatient (RCR) | payer BC, SELFPAY ==
--- NOTE | 2024-11-29 09:51 | HMH.PTOPEV ---
PT Outpatient Evaluation Rehab PT Outpatient Evaluation Start: 11/29/24 08:53 Freq: Status: Active Protocol: Document 11/29/24 08:53 AMARILIS (Rec: 11/29/24 09:50 AMARILIS [id number]) E-signed By Aaron Malone, PT Outpatient Therapy Subjective History Subjective History Pt is a 64 yom who is referred to [facility] outpatient PT with L sided Low back pain. Pt reports that this pain began approximately 18 months ago, when he slipped on some ice. Pt reports that the pain has not really changed since the fall. Pt reports that his pain is local to the L side of his low back. Pt reports that he is able to do all of his normal daily duties but many of them do increase his pain. Pt reports that his pain is mostly increased with mowing and riding on a tractor . Pt reports pain with lying on his back. Pt reports that he was given a topical cream from pain management and reports that it has helped some. Pt reports that they discussed the potential for injections but he would like for that to be a last resort. Occupation: Retired PMH: L3 Discectomy (25 years ago) PMH: None New diagnosis of No cancer in past 12 months? Chief Complaint Pain,Stiff Symptom Type Sharp Symptoms Relieved By Heat,OTC Meds Symptoms Aggravated Standing,Walking,Lifting By Prior Functional None Limitations Current Functional Lifting,Housework,Walking Limitations Symptom Description Intermittent,Activity Dependent Level of pain today 4 (0-10) Pain scale - at its 0 best (0-10) Pain scale - at its 7 worst (0-10) Lumbopelvic Eval Posture Thoracic Spine Increased Kyphosis Posture Standing Position Lumbar Spine Posture Flattened Standing Position Palapation tenderness left lumbar spinal Yes: TTP 3/4 and hypomobile (2) at T8-L3 tenderness Lumbar/Sacral Tenderness Palpation Findings Lumbar/Sacral TTP 3/4 and palpable TrP to Quadratus Lumborum and L Palpation Overall Lumbar paraspinals Comment Accessory Movement T-spine Vertebrae Left P/A Larimore Accessory Movements that Elicit Symptoms T10 left T11 left T12 left L2 left L3 left Range of Motion Lumbar Spine Active 75% Flexion Range of Motion (degrees) Lumbar Spine Active 25% Extension Range of Motion (degrees) Left Lumbar Spine 50% Lateral Flexion Active Range of Motion (degrees) Right Lumbar Spine 25% Lateral Flexion Active Range of Motion (degrees) Lumbar Spine ROM Soft Tissue Tightness,Pain Limitations DTR Rt Patellar 2+ Lt Patellar 2+ Rt Gastroc/Soleus 2+ Lt Gastroc/Soleus 2+ Special Tests Lumbar Spine Screen Positive Forward Bending Test Negative Left,Negative Right - Standing Sciatic Nerve Negative Left Tension Test Bilateral Straight Negative Leg Raise Test Hip Hansa's Test Negative Left Sacroiliac Joint Negative Left Compression Test Sacroiliac Joint Negative Left Distraction Test Lumbar Long [place] Negative Distraction Test/ Manual Traction Oswestry Index Section 1 Pain Intensity The pain comes and goes and is very mild Section 2 Personal Care ( change my way of washing or dressing in order to avoid Washing,Dresing) pain Section 3 Lifting I can lift heavy weights without extra pain Section 4 Walking I have some pain when walking but it does not increase with distance Section 5 Sitting I can sit in any chair for as long as I like Section 6 Standing I can stand as long as I want without pain Section 7 Sleeping I get pain in bed, but it does not prevent me from sleeping well Section 8 Social Life My social life is normal and gives me no extra pain Section 9 Traveling I get no pain when traveling Section 10 Changing Degreee of My pain is neither getting better or worse Pain Score and Risk Level Oswestry Sc 5 Oswestry Risk Level Mild Disability Miscellaneous Dx PT Eval Objective Objective B LE MMT: 10/02 Grossly Outpatient Therapy Assessment Impairments Problems/ Palpation Tenderness,Impaired Range of Motion,Impaired Impairmments Work Activities,Subjective C/O Pain Prognosis Rehab Potential Good Clinical Impression Consistent with Yes Diagnosis Consistent with LBP w mob. deficits. Additional details: M54.5 Pt presents with hypomobility throughout his Lumbar spine. His primary complaint of pain is reproduced with palpation of the L quadratus Lumborum. Pt with remarkably more tautness in the L side than the R side. Skilled PT is indicated for this pt. 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 Automatic Goals Number of Weeks 8 Decreased Palpation Yes: 0-1/4 to TTP assessment above Tenderness Increase Range of Yes: 75-100% WNL Lumbar ROM Motion Increase Ability to Yes: 1 hour without increasing symptoms Walk Improve Tolerance to Yes: Able to mow/ride tractor without increasing Work Activities symptoms Improve Oswestry Yes: <2 Score Decrease Subjective Yes: 2-3/10 with above assessment C/O Pain Patient to be Ind w/ Yes Advanced HEP Outpatient Therapy Plan of Care Treatment Plan May Include Therapeutic Exercise Yes Including Home Exercise Program Manual Therapy Yes Techniques Neuromuscular Re- Yes education Therapeutic Yes Activities to Return to Previous Functional/Work Level ADL/Self Care Yes Education Mechanical Traction Yes Dry Needling Yes Thermal Modalities Yes Electrical Yes Stimulation Massage Yes Manual Lymphatic Yes Drainage Eval/Re-Eval Yes Frequency Times per week 1-2 Duration Number of Weeks 8 Addendums This patient is a No candidate for social or vocational rehab ? Patient/Guardian Yes verbally acknowledges understanding of treatment program and consents to further treatment? Patient/Guardian Yes verbally acknowledges understanding of diagnosis, prognosis and goals for treatment? Eval Complexity PT Charges 48447 - Low Complexity Shoulder/Elbow Eval Shoulder Objective Measurements Elbow Objective Measurements PHYSICIAN CERTIFICATION: I certify the specified therapy services for Enrrique Zelaya are required, authorized, and reviewed every 30 days.
== END 2024-12-27 23:59 | disposition home or self-care (01) ==
LOC: PT 11:00
PROVIDERS: Visit Provider Nurse Practitioner Family
DX: M54.50 Low back pain, unspecified (principal)
CPT/HCPCS: 97110; 97140; 97161

== ENCOUNTER 2025-01-10 13:41 | Outpatient (POV) | payer BC, SELFPAY ==
--- OUTSIDE RECORDS SUMMARY | 2025-01-10 13:47 | XMS_ITS | Encounter Summary ---
Author Organization Healthcare Address [address] [place] [address] Care Team Providers Care Fashion Coordinator Name Role Phone Roni Vargas MD Primary Care Provider [phone] Reason for Referral * Consultation (Routine) - Closed Specialty Diagnoses / Procedures Referred By Contac t Referred To Contact Dentist / Pain Medicine Diagnoses Obstructive sleep apnea (adult) (pediatric) Tessa Rowland MD [address] [place] [address] Phone: tel: fax: Quita Ospina, DDS [address] [place] [address] Phone: tel: fax: Referral ID Status Reason Start Date Expiration Date Visits Re quested Visits Authorized [id number] Closed 09/28/2023 03/29/2025 1 1 Encounter Details Date Type Department Care Team (Late st Contact Info) Description 09/28/2023 [facility] [address] [place] [address] Tessa Rowland MD [address] [facility] [address] [place] [address] Obstructive sleep apnea (adult) (pediatric) (Primary [...] Primary documented in this encounter Care Teams Fashion Coordinator Relationship Specialty Start Date End Date Roni Vargas MD [address] [place] [id number] PCP - General 10/11/20 documented as of this encounter
--- OUTSIDE RECORDS SUMMARY | 2025-01-10 13:47 | XMS_ITS | Clinical Summary ---
Author Organization Healthcare Address [address] [place] [address] Care Team Providers Care Aircraft Mechanic Name Role Phone Roni Vargas MD Primary Care Provider [phone] Allergies Active Allergy Reactions Criticality Noted Date [...] 02/02/2010 [facility]-Zoster Vaccines (1 of 2) 02/02/2010 [id number] Vaccine (3 - season) 2024 04/12/2021, 08/31/2020 [facility]-Influenza Vaccine (#1) 01/29/202503/26, 03/25/2021 [facility]-RSV Vaccine: 60+ Years o r [...] complete this topic Insurance OPAL Care Teams Aircraft Mechanic Relationship Specialty Start Date End Date Roni Vargas MD [address] [place] [address] PCP - General 10/11/20
--- NOTE | 2025-01-10 14:25 | EXP.PAIN.SOA ---
[facility] Disclaimer: The information contained in this section may have been updated after the patient was seen, as this information can be updated by other users. Medical History Acid reflux Abnormal electrocardiogram [ECG] [EKG] Hypertension ASTRID (obstructive sleep apnea) ASTRID initially diagnosed following a home sleep study ordered by PCP, (Dr. Roni Vargas) 11/18/2018: [facility], AHI 22, RDI 29, lowest SpO2: 80%. Sleep efficiency: 78% time. 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 He rates his pain today a 0 out of 10. Patient states that he really did not notice a significant difference with the compounded cream and physical therapy. Patient states the pain is much more manageable and feels like he is doing well overall. Patient did recently have additional imaging that we are to go over today. His David has been reviewed and is appropriate. Review of Systems: General: No recent weight changes, no fever, no sleep disturbances Respiratory: No cough, no shortness of air, no recurring pulmonary infections Cardiovascular/peripheral vascular: No chest pain, no palpitations, no edema, no shortness of breath Gastrointestinal: No new onset incontinence, normal bowel movements reported Genitourinary: No new onset incontinence Musculoskeletal: Low back pain Psychiatric: [Normal mood/affect] Neurological: [Denies weakness in extremities], [denies balance issues] Pain at rest (0-10 scale): 0 Objective Objective:: Physical Exam: General: Alert and oriented x3, no acute distress, pleasant and cooperative Lungs: Respirations even and unlabored, symmetrical chest expansion Eyes: PERRL Musculoskeletal: Flexion and extension of lumbar spine within normal limits Neurological: Speech clear, no gross sensory deficit Has patient had previous pain injection?: No Conservative treatment options previously tried: Home exercise plan Length of treatment: Longer than 12 weeks and Physical Therapy Length of treatment: Ongoing Meds Home Medications and Allergies Home Medications ?Medication ?Instructions ?Recorded ?Confirmed ?Type losartan 100 mg tablet 100 mg PO DAILY Hypertension 04/12/18 01/10/25 History atorvastatin 40 mg tablet 40 mg PO DAILY 09/27/23 01/10/25 History omeprazole 40 mg capsule,delayed 40 mg PO DAILY #30 caps 01/24/24 01/10/25 Rx release hydrochlorothiazide 25 mg tablet 25 mg PO .COMPLEX #30 tabs 07/06/24 01/10/25 Rx amlodipine 5 mg tablet (Norvasc) 5 mg PO DAILY #30 tabs 08/25/24 01/10/25 Rx semaglutide 0.25 mg or 0.5 mg (2 2 mg SQ WEEKLY 01/10/25 01/10/25 History mg/1.5 mL) subcutaneous pen injector ([employer]) New Prescriptions to Start Prescriptions: Allergies Allergy/AdvReac Type Severity Reaction Status Date / Time No Known Allergies Allergy Verified 01/10/25 07:48 Assessment and Plan *Assessment and plan (1) Low back pain: Status: Acute Category: Medical Code(s): M54.50 - Low back pain, unspecified Plan I did review other with him regarding his image findings that did show degenerative disc disease, facet arthropathy and osteophytes. Patient overall has been doing really well from the addition of physical therapy and compounded cream. Patient will return to clinic in 3 months for reevaluation of symptoms and plan of care. Patient has been instructed to contact the clinic with any concerns before the next appointment. Dr. Loving has reviewed this note and agrees with this plan of care. This note was dictated using voice recognition software and make contain errors or omissions. All injections are used with Lidocaine, Bupivacaine and dexamethasone. Occasionally urine drug screen is needed to verify patient's compliance with our office pain contract. This is ordered based off specific treatments related to chronic pain with the potential to abuse certain medications.
[2025-01-10 14:42] VITALS: BP 128/75; PULSE 79; RESP 18; O2SAT 95; BMI 36.0
== END 2025-01-10 23:59 | disposition home or self-care (01) ==
LOC: SC.PAIN 13:45
PROVIDERS: PCP Internal Medicine Adolescent Medicine; Visit Provider Nurse Practitioner Family
DX: M54.50 Low back pain, unspecified (principal); Z98.890 Other specified postprocedural states
CPT/HCPCS: 99212; G0463

== ENCOUNTER 2025-01-17 17:00 | Outpatient (RCR) | payer BC, SELFPAY ==
--- NOTE | 2025-01-01 11:57 | HMH.RHREAS ---
Rehab Reassessment Rehab OP Re-assessment Start: 01/01/25 10:52 Freq: Status: Active Protocol: Document 01/01/25 11:34 AMARILIS (Rec: 01/01/25 11:57 AMARILIS [id number]) E-signed By Aaron Malone, PT Oswestry Index Section 1 Pain Intensity The pain comes and goes and is very mild Section 2 Personal Care ( change my way of washing or dressing in order to avoid Washing,Dresing) pain Section 3 Lifting I can lift heavy weights without extra pain Section 4 Walking I have no pain when walking Section 5 Sitting I can sit in any chair for as long as I like Section 6 Standing I can stand as long as I want without pain Section 7 Sleeping I get no pain in bed Section 8 Social Life My social life is normal and gives me no extra pain Section 9 Traveling I get no pain when traveling Section 10 Changing Degreee of My pain is getting better Pain Score and Risk Level Oswestry Sc 0 Oswestry Risk Level No Disability Rehab Re-assessment Subjective Subjective Pt reports that he is approximately 20-25% improved this date. Reports that he is not limited in doing anything but reports that his pain will still increase with certain activities, especially being on his feet for long periods or when driving his tractor. Pt reports that he does feel like PT is helping and would like to continue for a few more weeks. Pt reports that his pain is a 4/10 at worst this date. Objective Objective Notes ORIANA: 0 (5 on IE) TTP: 2/4 to L side Low back and palpable TrP to L QL ROM: - 100% Flexion (with pain) - 50% extension - 50% Lateral Flexion b/l Assessment Progress Assessment Progressing as Expected Assessment Notes Pt has undergone one month of skilled PT focused on symptom modulation, soft tissue work, improvements in lumbar mobility and lumbopelvic motor control. The pt has responded well and met all of his short term goals at this time. 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 Patient goals met ST/ LT Plan Plan Continue as per initial POC Frequency of Therapy 1-2/week Duration of Therapy 4 weeks Therapeutic Exercise Yes Including Home Exercise Program Manual Therapy Yes Techniques Neuromuscular Re- Yes education Therapeutic Yes Activities to Return to Previous Functional/Work Level ADL/Self Care Yes Education Mechanical Traction Yes Dry Needling Yes Thermal Modalities Yes Electrical Yes Stimulation Ultrasound/ Yes Phonophoresis Iontophoresis Yes Massage Yes Manual Lymphatic Yes Drainage Eval/Re-Eval Yes Time and Billing Re-Eval Time 10 Re-Eval Billing 0 Units Charge for PT No reassessment? PHYSICIAN CERTIFICATION: I certify the specified therapy services for Enrrique Zelaya are required, authorized, and reviewed every 30 days.
== END 2025-01-17 23:59 | disposition home or self-care (01) ==
LOC: PT 17:00
PROVIDERS: Visit Provider Nurse Practitioner Family
DX: M54.50 Low back pain, unspecified (principal)
CPT/HCPCS: 97014; 97110; 97140; G0283